=== PATIENT | male | born 1980 | race Caucasian/White ===

== ENCOUNTER 2017-08-28 02:51 | Emergency (ER) | payer OTHER, SELFPAY ==
[~2017-08-28] VITALS: Ht 172.7 cm; Wt 80.0 kg
== END 2017-08-28 03:36 | disposition home or self-care (01) ==
LOC: ED 03:22 → MERGE 03:22 → ED 03:36
DX: Z77.21 Contact with and (suspected) exposure to potentially hazardous body fluids (principal)
CPT/HCPCS: 36415; 84460; 86703; 86706; 86803; 87899; 99284; G0435

== ENCOUNTER 2017-12-15 18:06 | Emergency (ER) | payer OTHER ==
[~2017-12-15] VITALS: Ht 172.7 cm; Wt 81.3 kg
[2017-12-15 18:07] VITALS: BP 113/74
[2017-12-15] MEDS ORDERED: FLUORESCEIN OPHTHALMIC 1 MG STRIP ONE (18:28)
[2017-12-15] MEDS ORDERED: PROPARACAINE OPHTH 0.5%, 15ML ONE (18:28)
[2017-12-15] MEDS ORDERED: PROPARACAINE OPHTH 0.5%, 15ML RIGHTEYE ONE (18:30)
[2017-12-15 18:39] LABS: BASOPHILS # (AUTO) 0.02 x10^3/uL (0-0.1); BASOPHILS % (AUTO) 0 % (0-1); EOSINOPHILS # (AUTO) 0.06 x10^3/uL (0-0.4); EOSINOPHILS % (AUTO) 1 % (1-7); LYMPHOCYTES # (AUTO) 2.56 x10^3/uL (1-3.4); LYMPHOCYTES % (AUTO) 34 % (22-44); MD NO; MEAN CORPUSCULAR HGB CONC 34.3 g/dL (33.2-36.2); MEAN CORPUSCULAR VOLUME 93.1 fL (81-97); MEAN PLATELET VOLUME 7.8 fL (7.4-10.4); MONOCYTES # (AUTO) 0.53 x10^3/uL (0.2-0.8); MONOCYTES % (AUTO) 7 % (2-9); NEUTROPHILS # (AUTO) 4.43 x10^3/uL (1.8-6.8); NEUTROPHILS % (AUTO) 58 % (42-75); PLATELET COUNT 203 x10^3/uL (130-400); RED BLOOD COUNT 5.52 x10^6/uL (4.38-5.82)
[2017-12-15 18:46] LABS: INTERNATIONAL NORMALIZED RATIO 1.07 (0.93-1.1)
[2017-12-15] MEDS ORDERED: predniSOLONE OPHTH SUSP 1%, 5ML RIGHTEYE PRN ×2 (19:00)
[2017-12-16 01:18] LABS: ALBUMIN 4.4 g/dL (3.4-5.0); ANION GAP 7 mmol/L (5-15); CALCIUM 9.5 mg/dL (8.5-10.1); CHLORIDE 107 mmol/L (98-107)
[2017-12-16 01:22] LABS: ALANINE AMINOTRANSFERASE 56 U/L (12-78); ALKALINE PHOSPHATASE 56 U/L (45-117); BILIRUBIN,TOTAL 1.1 mg/dL (0.2-1.0); TOTAL PROTEIN 8.3 g/dL (6.4-8.2)
== END 2017-12-15 18:53 | disposition home or self-care (01) ==
LOC: ED 18:47
DX: H10.31 Unspecified acute conjunctivitis, right eye (principal); R79.1 Abnormal coagulation profile
CPT/HCPCS: 36415; 80053; 85025; 85610; 85730; 86705; 86706; 86803; 87340; 87806; 99284; G0475

== ENCOUNTER 2018-04-08 01:39 | Emergency (ER) | payer OTHER ==
[~2018-04-08] VITALS: Ht 172.7 cm; Wt 86.0 kg
[2018-04-08 01:41] VITALS: BP 123/84
[2018-04-08] MEDS ORDERED: DEXAMETHASONE 4 MG TABLET PO STA (01:53)
[2018-04-08] MEDS ORDERED: DEXAMETHASONE 4 MG TABLET ONE (02:00)
== END 2018-04-08 02:26 | disposition home or self-care (01) ==
LOC: ED 02:20
DX: B96.89 Other specified bacterial agents as the cause of diseases classified elsewhere (principal); B97.89 Other viral agents as the cause of diseases classified elsewhere; J42 Unspecified chronic bronchitis; J02.8 Acute pharyngitis due to other specified organisms; F17.200 Nicotine dependence, unspecified, uncomplicated
CPT/HCPCS: 71046; 99284

== ENCOUNTER 2020-02-23 13:47 | Emergency (ER) | payer OTHER ==
[~2020-02-23] VITALS: Ht 172.7 cm; Wt 94.0 kg
[2020-02-23 13:50] VITALS: BP 120/74
[2020-02-23] MEDS ORDERED: AMOXICILLIN/CLAV 875-125MG TABLET PO ONE (14:00)
[2020-02-23] MEDS ORDERED: AMOXICILLIN/CLAV 875-125MG TABLET ONE (14:04)
== END 2020-02-23 14:23 | disposition home or self-care (01) ==
LOC: ED 14:05
DX: S50.872A Other superficial bite of left forearm, initial encounter (principal); W54.0XXA Bitten by dog, initial encounter; Y93.89 Activity, other specified; Y92.098 Other place in other non-institutional residence as the place of occurrence of the external cause; Y99.8 Other external cause status
CPT/HCPCS: 99283

== ENCOUNTER 2020-07-30 11:32 | Emergency (ER) | payer OTHER ==
[~2020-07-30] VITALS: Ht 172.7 cm; Wt 89.2 kg
--- NOTE | 2020-07-30 12:29 | NUR ---
PT TO CT AT THIS TIME
--- NOTE | 2020-07-30 12:29 | NUR ---
PT REQUESTS [facility]RO AND SCOPALA[facility] RX FOR UPCOMING TRAVEL TRIP. ERMD UPDATED
--- NOTE | 2020-07-30 13:19 | NUR ---
PT TO CT
[2020-07-30 13:26] LABS: BASOPHILS % (AUTO) 0 % (0-1); EOSINOPHILS % (AUTO) 3 % (1-7); LYMPHOCYTES % (AUTO) 33 % (22-44); MEAN CORPUSCULAR HGB CONC 33.8 g/dL (33.2-36.2); MEAN PLATELET VOLUME 8.1 fL (7.4-10.4); MONOCYTES % (AUTO) 9 % (2-9); NEUTROPHILS % (AUTO) 55 % (42-75); PLATELET COUNT 172 x10^3/uL (130-400); RED BLOOD COUNT 5.11 x10^6/uL (4.38-5.82)
[2020-07-30 13:27] VITALS: BP 102/54
[2020-07-30 13:28] LABS: MD NO
[2020-07-30 13:40] LABS: ALBUMIN 4.3 g/dL (3.4-5.0); ANION GAP 3 mmol/L (5-15); CALCIUM 9.3 mg/dL (8.5-10.1); CHLORIDE 107 mmol/L (98-107)
[2020-07-30 13:44] LABS: ALANINE AMINOTRANSFERASE 40 U/L (12-78); ALKALINE PHOSPHATASE 45 U/L (45-117); BILIRUBIN,TOTAL 0.9 mg/dL (0.2-1.0); CREATININE 1.09 mg/dL (0.7-1.3); TOTAL PROTEIN 7.4 g/dL (6.4-8.2)
== END 2020-07-30 13:30 | disposition home or self-care (01) ==
LOC: ED 12:16
DX: G89.29 Other chronic pain (principal); Z20.828 Contact with and (suspected) exposure to other viral communicable diseases; M54.2 Cervicalgia; R51.9 Headache, unspecified; M19.91 Primary osteoarthritis, unspecified site
CPT/HCPCS: 70450; 72141; 80053; 85025; 87635; 99285